=== PATIENT | female | born 1980 | race Caucasian/White ===

== ENCOUNTER 2017-07-12 08:56 | Emergency (ER) | payer OTHER ==
[2017-07-12] MEDS ORDERED: Diazepam 5 MG TAB ONE (09:17)
[2017-07-12] MEDS ORDERED: HYDROcodone/Acetaminophen 5/325 mg Tablet ONE (10:05)
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
== END 2017-07-12 12:26 | disposition home or self-care (01) ==
LOC: SCSER 08:56
DX: M50.222 Other cervical disc displacement at C5-C6 level (principal); E03.9 Hypothyroidism, unspecified; Z79.899 Other long term (current) drug therapy
CPT/HCPCS: 72125

== ENCOUNTER 2017-07-17 07:25 | Outpatient (CLI) | payer OTHER ==
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
== END 2017-07-17 07:26 | disposition home or self-care (01) ==
LOC: MRI 07:25
PROVIDERS: ATTEND Neurological Surgery
DX: M50.20 Other cervical disc displacement, unspecified cervical region (principal); M50.322 Other cervical disc degeneration at C5-C6 level; M47.812 Spondylosis without myelopathy or radiculopathy, cervical region
CPT/HCPCS: 72141

== ENCOUNTER 2017-08-18 07:29 | Inpatient (IN) | payer OTHER ==
[2017-08-17 12:11] VITALS: BMI 22.4
[2017-08-18] MEDS ORDERED: Levofloxacin 500 mg/D5W 100 ml Premix Bag ONE (07:57)
[2017-08-18] MEDS ORDERED: Clindamycin/D5W 900 mg/50 ml Premix Bag ONE (07:57)
[2017-08-18] MEDS ORDERED: Midazolam HCl 2 mg/2 ml Vial ONE ×2 (07:57→09:30)
[2017-08-18 08:24] LABS: #Eosinphils 0.1 thou/uL (0.0-0.7); #Lymphocytes 1.2 thou/uL (1.20-3.40); #Monocytes 0.4 thou/uL (0.11-0.59); #Neutrophils 1.9 thou/uL (1.40-6.50); %Basophils 1.3 % (0.0-1.0); %Eosinophils 2.5 % (0.0-10.0); %Lymphocytes 32.2 % (21.0-51.0); %Monocytes 11.5 % (0.0-10.0); Hematocrit 43.8 % (36.0-47.0); Mean Platelet Volume 7.4 fL (7.4-10.4); Red Blood Cell (RBC) Count 4.62 mill/uL (4.20-5.40); White Blood Cell (WBC) Count 3.7 thou/uL (4.8-10.8)
[2017-08-18 08:28] LABS: Prothrombin Time 13.6 SEC (12.0-14.7)
[2017-08-18 08:45] LABS: Anion Gap 9 mmol/L (10-20); BUN (Urea Nitrogen) 13 mg/dL (7.0-18.7); Calc. Creatinine Clearance 104 mL/min (70-130); Calcium 9.6 mg/dL (7.8-10.44); Carbon Dioxide 28 mmol/L (22-29); Chloride 105 mmol/L (98-107); Estimated GFR-MDRD Greater than 90
[2017-08-18] MEDS ORDERED: Thrombin 5000 UNITS/5 ML VIAL ONE (09:01)
[2017-08-18] MEDS ORDERED: Sodium Chloride 0.9% 10 ML ONE (09:01)
[2017-08-18] MEDS ORDERED: Fentanyl 100 MCG/2 ML VIAL ONE ×3 (09:19→12:35)
[2017-08-18] MEDS ORDERED: Ondansetron HCl/PF 4 MG/2 ML Vial ONE ×2 (09:20→14:17)
[2017-08-18] MEDS ORDERED: Promethazine HCl 25 MG/ML VIAL SLOW IVP PRN (11:53)
[2017-08-18] MEDS ORDERED: HYDROmorphone 2 MG/ML VIAL SLOW IVP PRN (11:53)
[2017-08-18] MEDS ORDERED: Ondansetron HCl/PF 4 MG/2 ML Vial IVP PRN (11:53)
[2017-08-18] MEDS ORDERED: Promethazine HCl 25 MG/ML VIAL IM/IV PRN (11:53)
[2017-08-18] MEDS ORDERED: Meperidine HCl/PF 25 MG/ML VIAL ONE (11:54)
[2017-08-18] MEDS ORDERED: Acetaminophen 325 MG TAB PO PRN (12:25)
[2017-08-18] MEDS ORDERED: traMADol HCl 50 MG TAB PO PRN (12:25)
[2017-08-18] MEDS ORDERED: Fleet Enema 133 ML BOT PR PRN (12:25)
[2017-08-18] MEDS ORDERED: Promethazine HCl 25 MG/ML VIAL IM PRN (12:25)
[2017-08-18] MEDS ORDERED: Acetaminophen/Codeine 30-300mg Tablet PO PRN (12:25)
[2017-08-18] MEDS ORDERED: Morphine PF 1 MG/ML SYR IVP PRN (12:25)
[2017-08-18] MEDS ORDERED: Milk Of Magnesia 30 ML UDCUP PO PRN (12:25)
[2017-08-18] MEDS ORDERED: Bisacodyl 10 MG SUPP PR PRN (12:25)
[2017-08-18] MEDS ORDERED: Mag-Al 1200 mg/1200 mg/30 ML UDCUP PO PRN (12:25)
[2017-08-18] MEDS ORDERED: Promethazine HCl 25 MG/ML VIAL ONE (12:28)
--- NOTE | 2017-08-18 12:44 | OP ---
OR: 11. WOUND TYPE: Type 1 wound. SURGEON: Sven Navarro M.D. FIRE ENGINE OPERATOR: Chuy Pang PA-C. PREPROCEDURE DIAGNOSES: C5-C6 disk extrusion with neck and left arm pain. POSTPROCEDURE DIAGNOSES: C5-C6 disk extrusion with neck and left arm pain. PROCEDURES PERFORMED: 1. Anterior C5-C6 diskectomy for decompression of the spinal cord and nerve roots. 2. Preparation of endplates for placement of interbody spacer packed with local bone autograft obtai nash from same incision and allograft for arthrodesis and structural support, C5-C6. 3. Anterior cervical plate and screw fixation, C5-C6. 4. Use of operative microscope for microdissection. DESCRIPTION OF PROCEDURE: After informed consent was obtained from the patient, the patient brought to OR 11. Proper patient pause and identification was carried out. She was placed under excellent g eneral endotracheal anesthesia and positioned supine on the operating room table. All appropriate po ints were padded. Keeping her cervical spine in neutral position, we identified a right-sided anteri or neck approach that would allow for trajectory to the C5-C6 segment. This area was sterilely clean sed, prepared, and draped. Proper patient pause and identification was again carried out. The wound was then opened with a combination of sharp, monopolar and blunt dissection, and proceeded lateral t o the tracheoesophageal bundle and medial to the right carotid sheath. We identified the prevertebra l layer of deep cervical fascia and the longus colli muscles were swept laterally. Retraction was pl aced. We then confirmed localization and distraction at C5-C6 that occurred following incising into the disk space. Disk material was then removed. The operative microscope was brought in for microdi ssection. We achieved excellent decompression of the common dural tube and the C6 nerve roots and re moved multiple disk fragments. Hemostasis was maximized throughout. The endplates were then prepare d and an interbody spacer of appropriate dimension was placed and we were satisfied with our construc t. We then removed the microscope and anterior cervical plate and screw fixation then occurred at C5 -C6 and final tightening occurred. We were satisfied with both gross and fluoroscopic visualization of our construct. The wound was copiously irrigated throughout and closed in anatomic layers over a drain. The patient then emerged from anesthesia.
[2017-08-18] MEDS ORDERED: Dexamethasone 20 MG/5 ML VIAL ONE (14:17)
[2017-08-18] MEDS ORDERED: Propofol 200 MG/20 ML VIAL ONE (14:17)
[2017-08-18] MEDS ORDERED: Glycopyrrolate 0.2 MG/ML 5 ML SYRINGE ONE (14:17)
[2017-08-18] MEDS ORDERED: Lidocaine 1% PF 5 ML VIAL ONE (14:17)
[2017-08-18] MEDS ORDERED: Ketorolac Tromethamine 30 MG/ML VIAL ONE (14:17)
[2017-08-18] MEDS ORDERED: PHENYLEPHRINE-NS 100 MCG/ML 10 ML SYRINGE ONE (14:17)
[2017-08-18] MEDS ORDERED: Morphine 4 MG/ML VIAL SLOW IVP PRN (15:16)
[2017-08-18] MEDS: Cyclobenzaprine 10 MG TAB PO PRN (15:23)
[2017-08-18] MEDS: Sodium Chloride 0.9% 1,000 ML IV SCH (15:24)
[2017-08-18] MEDS: Clindamycin/D5W 900 MG in Premix Bag 1 BAG IVPB SCH ×2 (17:20→23:59)
[2017-08-18] MEDS: HYDROcodone/Acetaminophen 7.5/325 mg Tablet PO PRN (19:09)
[2017-08-18] MEDS ORDERED: FLU VACC QS2017-18 36 mo. & older 0.5 ML SYRINGE IM ONE (21:00)
[2017-08-19] MEDS: Sodium Chloride 0.9% 1,000 ML IV SCH (03:25)
[2017-08-19] MEDS ORDERED: Levothyroxine Sodium 100 MCG TAB PO SCH (06:00)
[2017-08-19] MEDS: Cyclobenzaprine 10 MG TAB PO PRN (06:20)
[2017-08-19 07:51] VITALS: BP 108/73; TEMP 98.5
--- NOTE | 2017-08-19 09:06 | PRG ---
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 She has dysphonia, but mild dyspha marcin. Her left arm pain is resolved. She has good strength. Her drain has been removed. We went ov er intraoperative and postoperative issues. We will plan for dismissal today.
[2017-08-19] MEDS: HYDROcodone/Acetaminophen 7.5/325 mg Tablet PO PRN (09:37)
--- NOTE | 2017-08-20 13:53 | DIS ---
DATE OF ADMISSION: 08/18/2017 DATE OF DISCHARGE: 08/19/2017 DISCHARGE DIAGNOSIS: Neck pain with cervical radiculopathy and C5-6 disk extrusion. 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 Surgery was without complication and she was sent to recover on the surgica l floor overnight. Her stay was without complication and she was discharged home on 08/19/2017 with good pain control. At the time of discharge again, the patient was doing well postoperatively and is pleased with her outcome. Appropriate patient education was provided as well as appropriate outpati ent followup scheduled. Ample opportunity was given to the patient to discuss her questions and conc erns and again, at the time of discharge, she was pleased with her outcome postoperatively.
== END 2017-08-19 10:23 | disposition home or self-care (01) | DRG 472 ==
LOC: SURG A 07:29 → EEVIPCON 07:29 → SURG A 13:22
PROVIDERS: ADMIT Surgery; ATTEND Surgery
PROC: 0RG10A0 Fusion of Cervical Vertebral Joint with Interbody Fusion Device, Anterior Approach, Anterior Column, Open Approach (ICD-10-PCS; principal; 2017-08-18)
PROC: 0RB30ZZ Excision of Cervical Vertebral Disc, Open Approach (ICD-10-PCS; 2017-08-18)
DX: M50.122 Cervical disc disorder at C5-C6 level with radiculopathy (principal); M50.022 Cervical disc disorder at C5-C6 level with myelopathy; M48.02 Spinal stenosis, cervical region
CPT/HCPCS: 76001; 80048; 85025; 85610; 85730; 93005; 93010; A4216; C1713; J0131; J1100; J1885; J1956; J2001; J2175; J2250; J2270; J2405; J2550; J2704; J3010; J3490

== ENCOUNTER 2017-09-30 08:08 | Outpatient (CLI) | payer OTHER ==
--- NOTE | 2017-09-30 10:14 | RAD ---
THREE VIEWS OF THE CERVICAL SPINE: 09/30/2017 HISTORY: History of cervical herniated disk. Cervical fusion six weeks ago. COMPARISON: None. FINDINGS: Anterior diskectomy and fusion hardware is present at the C5-C6 level. No evidence for hardware fail ure. No prevertebral soft tissue swelling. Open-mouth odontoid view demonstrates a normal appearing dens and C1-C2 articulation. Vertebral body height and alignment are within normal limits. IMPRESSION: Status post anterior diskectomy and fusion at C5-C6. POS: [facility]
== END 2017-09-30 08:09 | disposition home or self-care (01) ==
LOC: TBSIIMAG 08:08
PROVIDERS: ATTEND Surgery
DX: M50.20 Other cervical disc displacement, unspecified cervical region (principal); Z98.1 Arthrodesis status; Z98.890 Other specified postprocedural states
CPT/HCPCS: 72040